=== PATIENT | male | born 1950 | race Caucasian/White ===

== ENCOUNTER → 2024-10-09 12:56 | Outpatient (BNVA) | payer OTHER, SELFPAY | PROVIDERS: Referring Provider Emergency Medicine; Visit Provider Internal Medicine | DX: E27.8 Other specified disorders of adrenal gland (principal); I10 Essential (primary) hypertension | CPT/HCPCS: 36415; 80053; 82088; 84244; 99204 ==

== ENCOUNTER → 2024-12-11 09:44 | Outpatient (BNVA) | payer OTHER, SELFPAY | PROVIDERS: Referring Provider Emergency Medicine; Visit Provider Internal Medicine | DX: E27.8 Other specified disorders of adrenal gland (principal); I10 Essential (primary) hypertension | CPT/HCPCS: 99214 ==